=== PATIENT | male | born 1965 | race Caucasian/White ===

== ENCOUNTER 2019-11-22 21:30 | Emergency (ER) | payer OTHER ==
[2019-11-22] MEDS ORDERED: traMADol HCl 50 MG TAB ONE (22:32)
--- NOTE | 2019-11-22 23:11 | CT ---
CT OF THE BRAIN WITHOUT CONTRAST: 11/22/19 COMPARISON: None. HISTORY: Fall off riding mower with 2 to 3 cm laceration in the back of the head. TECHNIQUE: Multiple contiguous axial images were obtained in a CT of the brain without contrast. Sagittal and co claudia reformats were performed. FINDINGS: The brain is normal in morphology and attenuation without focal lesions or confluent areas of infarct ion. There is no evidence of hydrocephalus, intracranial hemorrhage, or extra-axial fluid collection. The calvarium is unremarkable. Mae are seen in the posterior scalp. No radiopaque foreign body is otherwise seen. The visualized paranasal sinuses and mastoid air cells are well aerated. IMPRESSION: No evidence of acute intracranial abnormality. POS: [facility]
--- NOTE | 2019-11-22 23:13 | RAD ---
EXAM: RIGHT RIB SERIES AND SINGLE VIEW OF THE CHEST: 11/22/19 HISTORY: Crash on riding lawnmower with right chest pain. FINDINGS: Two views of the right ribs and a single view of the chest shows a normal sized cardiomediastinal matteo houette. There is no evidence of consolidation, mass or pleural effusion. No displaced rib fractures are appreciated. No underlying pleural thickening or pneumothorax are seen. IMPRESSION: Unremarkable exam. POS: [facility]
== END 2019-11-22 23:20 | disposition home or self-care (01) ==
LOC: NAV ERS 21:30
DX: S01.01XA Laceration without foreign body of scalp, initial encounter (principal); S20.211A Contusion of right front wall of thorax, initial encounter; F32.9 Major depressive disorder, single episode, unspecified; I10 Essential (primary) hypertension; Z79.899 Other long term (current) drug therapy; W17.89XA Other fall from one level to another, initial encounter
CPT/HCPCS: 12001; 70450